=== PATIENT | female | born 1950 | race Hispanic/Latino ===

== ENCOUNTER 2017-01-12 01:21 | Emergency (ER) | payer OTHER ==
[2017-01-12 02:23] VITALS: BP 110/75
[2017-01-12 02:53] LABS: Basophils % (Auto) 0.8 % (0.0-1.8); Eosinophils % (Auto) 1.5 % (0.0-4.3); Hematocrit 42.4 % (30.3-42.9); Hemoglobin 14.2 gm/dl (10.1-14.3); Mean Corpuscular HGB Conc 33 % (30-34); Mean Corpuscular Hemoglobin 29 pg (28-32); Mean Corpuscular Volume 87 fl (79-97); Platelet Count 269 K/mm3 (140-440); Red Blood Count 4.88 M/mm3 (3.65-5.03); Red Cell Distribution Width 13.3 % (13.2-15.2)
[2017-01-12 03:13] LABS: Alanine Aminotransferase 11 units/L (7-56); Albumin 3.9 g/dL (3.9-5); Albumin/Globulin Ratio 1.1 %; Alkaline Phosphatase 52 units/L (35-129); Anion Gap 20 mmol/L; BUN/Creatinine Ratio 18.75; Blood Urea Nitrogen 15 mg/dL (7-17); Calcium 9.2 mg/dL (8.4-10.2); Carbon Dioxide 19 mmol/L (22-30); Chloride 101.6 mmol/L (98-107); Glucose 105 mg/dL (65-100); Lipase 28 units/L (13-60); Potassium 4.1 mmol/L (3.6-5.0); Sodium 136 mmol/L (137-145); Total Protein 7.3 g/dL (6.3-8.2)
--- NOTE | 2017-01-15 00:52 | ED Elopement Review ---
ED Pt Elopement review - Results review Lab results: Laboratory Tests 01/12/17 01/12/17 02:27 02:27 WBC 4.0 L RBC 4.88 Hgb 14.2 Hct 42.4 MCV 87 MCH 29 MCHC 33 RDW 13.3 Plt Count 269 Lymph % (Auto) 23.3 Gila % (Auto) 5.8 Eos % (Auto) 1.5 Baso % (Auto) 0.8 Lymph # 0.9 L Gila # 0.2 Eos # 0.1 Baso # 0.0 Seg Neutrophils % 68.6 Seg Neutrophils # 2.7 Sodium 136 L Potassium 4.1 Chloride 101.6 Carbon Dioxide 19 L Anion Gap 20 BUN 15 Creatinine 0.8 Estimated GFR > 60 BUN/Creatinine Ratio 18.75 Glucose 105 H Calcium 9.2 Total Bilirubin 0.20 AST 19 ALT 11 Alkaline Phosphatase 52 Total Protein 7.3 Albumin 3.9 Albumin/Globulin Ratio 1.1 Lipase 28 - Call Back decision Pt Call Back Decision: Pt to F/U with PMD
== END 2017-01-12 02:45 | disposition left against medical advice (07) ==
LOC: ED 01:21
DX: R10.9 Unspecified abdominal pain (principal); Z53.21 Procedure and treatment not carried out due to patient leaving prior to being seen by health care provider
CPT/HCPCS: 36415; 80053; 83690; 85025

== ENCOUNTER 2017-03-24 20:12 | Emergency (ER) | payer MEDICARE, OTHER ==
[2017-03-24 20:27] VITALS: BP 148/107
[2017-03-24 21:13] LABS: Alanine Aminotransferase 11 units/L (7-56); Albumin 4.3 g/dL (3.9-5); Albumin/Globulin Ratio 1.2 %; Alkaline Phosphatase 56 units/L (35-129); Anion Gap 22 mmol/L; Blood Urea Nitrogen 16 mg/dL (7-17); Calcium 9.2 mg/dL (8.4-10.2); Carbon Dioxide 19 mmol/L (22-30); Chloride 99.8 mmol/L (98-107); Glucose 86 mg/dL (65-100); Potassium 3.8 mmol/L (3.6-5.0); Sodium 137 mmol/L (137-145); Total Protein 7.8 g/dL (6.3-8.2)
[2017-03-24 21:30] LABS: Basophils % (Auto) 0.7 % (0.0-1.8); Eosinophils % (Auto) 0.5 % (0.0-4.3); Hematocrit 45.9 % (30.3-42.9); Hemoglobin 15.1 gm/dl (10.1-14.3); Mean Corpuscular HGB Conc 33 % (30-34); Mean Corpuscular Hemoglobin 29 pg (28-32); Mean Corpuscular Volume 88 fl (79-97); Platelet Count 284 K/mm3 (140-440); Red Blood Count 5.21 M/mm3 (3.65-5.03); Red Cell Distribution Width 13.7 % (13.2-15.2); White Blood Count 5.3 K/mm3 (4.5-11.0)
== END 2017-03-24 21:54 | disposition left against medical advice (07) ==
LOC: ED 20:12
DX: F41.9 Anxiety disorder, unspecified (principal); Z53.21 Procedure and treatment not carried out due to patient leaving prior to being seen by health care provider
CPT/HCPCS: 36415; 80053; 85025